=== PATIENT | male | born 1945 | race Caucasian/White ===

== ENCOUNTER 2021-02-26 16:10 | Outpatient (CLI) | payer MEDICARE, SELFPAY ==
[2021-02-26 15:07] LABS: Basophils Percent Auto 0.5 % (0.2-1.2); Eosinophils Absolute Auto 0.2 K/mm3 (0-0.3); Eosinophils Percent Auto 2.7 % (0-4.4); Hematocrit 41.8 % (42.0-52.0); Hemoglobin 14.3 g/dL (14.0-18.0); Immature Granulocyte Absolute 0.02 K/mm3 (0.00-0.031); Immature Granulocyte Percent A 0.4 % (0-0.5); Lymphocytes Absolute Auto 1.56 K/mm3 (0.9-3.2); Lymphocytes Percent Auto 27.8 % (18.3-44.2); Mean Corpuscular HGB Conc 34.2 g/dl (32-36); Mean Corpuscular Hemoglobin 33.6 pg (26-34); Mean Corpuscular Volume 98.4 fl (80-100); Mean Platelet Volume 9.5 fl (7.4-10.4); Monocytes Absolute Auto 0.7 K/mm3 (0.1-0.6); Monocytes Percent Auto 12.1 % (2.6-8.5); Neutrophils Absolute Auto 3.2 K/mm3 (1.3-6.7); Neutrophils Percent Auto 56.5 % (45.5-73.1); Platelet Count Result 156 k/mm3 (150-375); Red Blood Count 4.25 M/mm3 (4.6-6.20); Red Cell Distribution Width 13.6 % (11.5-14.5); White Blood Count 5.6 K/mm3 (4.5-10.0)
[2021-02-26 15:19] LABS: Hemoglobin A1C 5.8 % (<5.7)
[2021-02-26 15:21] LABS: Albumin Level 4.7 g/dL (3.5-5.1); Anion Gap 5 mmol/L (8-16); Blood Urea Nitrogen 29 mg/dL (9-20); Calcium 9.6 mg/dL (8.4-10.2); Carbon Dioxide 32 mmol/L (22-30); Chloride 102 mmol/L (98-107); Estimated Glomerular Filt Rate 54; Glucose 89 mg/dL (75-110); Potassium 4.5 mmol/L (3.4-5.0); Sodium 139 mmol/L (137-145)
[2021-02-26 18:00] LABS: Urine Cotinine NEGATIVE
== END 2021-02-26 16:11 | disposition home or self-care (01) ==
LOC: ANHSURGERY 04-03 16:10
PROVIDERS: PCP Internal Medicine; Visit Provider Orthopaedic Surgery
DX: Z01.818 Encounter for other preprocedural examination (principal); M17.12 Unilateral primary osteoarthritis, left knee
CPT/HCPCS: 80048; 80307; 82040; 83036; 85025; 87070; C9803; U0003; U0005

== ENCOUNTER → 2021-03-14 02:29 | Outpatient (CLI) | payer MEDICARE, SELFPAY ==
[2021-03-15 19:16] LABS: SARS-CoV-2 RNA PCR Negative
== END ==
PROVIDERS: PCP Internal Medicine; Visit Provider Orthopaedic Surgery
DX: Z01.812 Encounter for preprocedural laboratory examination (principal); Z20.822 Contact with and (suspected) exposure to COVID-19
CPT/HCPCS: C9803; U0003; U0005

== ENCOUNTER 2021-05-30 13:19 | Outpatient (CLI) | payer MEDICARE, SELFPAY ==
[2021-05-30 13:54] LABS: Basophils Percent Auto 0.5 % (0.2-1.2); Eosinophils Absolute Auto 0.1 K/mm3 (0-0.3); Hematocrit 38.2 % (42.0-52.0); Hemoglobin 12.8 g/dL (14.0-18.0); Immature Granulocyte Absolute 0.01 K/mm3 (0.00-0.031); Immature Granulocyte Percent A 0.2 % (0-0.5); Lymphocytes Percent Auto 27.5 % (18.3-44.2); Mean Corpuscular HGB Conc 33.5 g/dl (32-36); Mean Corpuscular Hemoglobin 33.3 pg (26-34); Mean Corpuscular Volume 99.5 fl (80-100); Mean Platelet Volume 9.7 fl (7.4-10.4); Monocytes Absolute Auto 0.4 K/mm3 (0.1-0.6); Monocytes Percent Auto 9.9 % (2.6-8.5); Neutrophils Absolute Auto 2.6 K/mm3 (1.3-6.7); Neutrophils Percent Auto 58.9 % (45.5-73.1); Platelet Count Result 141 k/mm3 (150-375); Red Blood Count 3.84 M/mm3 (4.6-6.20); Red Cell Distribution Width 13.6 % (11.5-14.5); White Blood Count 4.4 K/mm3 (4.5-10.0)
[2021-05-30 14:01] LABS: Albumin Level 4.5 g/dL (3.5-5.1); Anion Gap 11 mmol/L (8-16); Blood Urea Nitrogen 29 mg/dL (9-20); Calcium 9.5 mg/dL (8.4-10.2); Carbon Dioxide 26 mmol/L (22-30); Chloride 103 mmol/L (98-107); Estimated Glomerular Filt Rate 59; Glucose 122 mg/dL (75-110); Potassium 3.9 mmol/L (3.4-5.0); Sodium 140 mmol/L (137-145)
[2021-05-30 14:07] LABS: Urine Cotinine NEGATIVE
[2021-05-30 14:12] LABS: Hemoglobin A1C 5.9 % (<5.7)
== END 2021-05-30 13:20 | disposition home or self-care (01) ==
LOC: ANHSURGERY 13:22
PROVIDERS: PCP Internal Medicine; Visit Provider Orthopaedic Surgery
DX: M17.12 Unilateral primary osteoarthritis, left knee (principal); Z01.818 Encounter for other preprocedural examination
CPT/HCPCS: 80048; 80307; 82040; 83036; 85025; 86850; 86900; 86901; 87070

== ENCOUNTER 2021-06-04 02:17 | Day surgery (SDC) | payer MEDICARE, SELFPAY ==
[2021-05-29 13:56] VITALS: BMI 34.1
[2021-06-04] VITALS (15 sets, daily range): BP systolic 138–177; BP diastolic 76–102; PULSE 60–80; RESP 9–21; TEMP 36.2–37.9; O2SAT 94–100
--- NOTE | ~2021-06-04 | XR_ITS ---
EXAMINATION: XR knee LT 2V DATE: 06/04/2021 16:13 INDICATION: Postoperative evaluation following left total knee arthroplasty. TECHNIQUE: Anteroposterior and lateral views of the left knee were obtained. COMPARISON: None. FINDINGS: Left total knee arthroplasty with patellar resurfacing appears well seated and in near anatomic align ment. No fractures identified. Expected postoperative subcutaneous and intra-articular gas. IMPRESSION: 1. Left total knee arthroplasty, negative for postoperative purposes. Reviewed, dictated and finalized at location A.
--- NOTE | 2021-06-04 08:29 | PM.IMHP ---
H&P: HPI History of Present Illness Date/Time: 06/04/21 08:29 76-year-old male who presents today for a left total knee arthroplasty. Patient has severe medial compartment arthritis in the knee. He has had injections in the past. He gets little to no relief. It has been well over 4 months since his last injection. He is not take anti-inflammatories because he is on Xarelto chronically for his AFib. He has reached point where he feels he would rather proceed with total knee arthroplasty rather continue nonsurgical treatment. He was scheduled earlier this year for surgery but ended up developing an open sore on his leg that prevented surgery. This has healed well at this point he is ready to proceed. <MELO Tate - Last Filed: 06/04/21 08:36> Chief Complaint: left knee DJD <MELO Tate - Last Filed: 06/04/21 08:36> Review of Systems Review of Systems: All systems reviewed & are unremarkable except as noted in HPI and below <MELO Tate - Last Filed: 06/04/21 08:36> ON LICENSE OF [facility] Past Medical History Medical History: Medical History Atrial fibrillation BPH (benign prostatic hyperplasia) CHF (congestive heart failure) Hyperlipidemia Hypertension ICD (implantable cardioverter-defibrillator) in place EMETERIO (obstructive sleep apnea) <MELO Tate - Last Filed: 06/04/21 08:36> Social History Social History: Social History Smoking packs per day: 1 Smoking cigarettes per day: 20.0 Years smoked: 7 Smoking pack-years: 7.00 Smoking status: Former smoker Tobacco type: cigarettes Smoking end date: 05/15/75 Alcohol intake: current Drinks per week: 14 Substance use: never Living arrangements: alone Spiritual care concerns: No <MELO Tate - Last Filed: 06/04/21 08:36> Meds Home Medications and Allergies Home medications: Home Medications Medication Instructions Recorded Confirmed Type acetaminophen [Tylenol Arthritis] 1,300 mg PO TID PRN 02/26/21 06/04/21 History ascorbic acid (vitamin C) 500 mg PO DAILY 02/26/21 06/04/21 History aspirin 81 mg PO DAILY 02/26/21 06/04/21 History atorvastatin 20 mg PO QAM 02/26/21 06/04/21 History carvedilol 6.25 mg PO BID 02/26/21 06/04/21 History cholecalciferol (vitamin D3) 50 mcg PO DAILY 02/26/21 06/04/21 History furosemide 40 mg PO QAM 02/26/21 06/04/21 History omega 7-xks-rac-fish oil [Fish Oil] 1 cap PO DAILY 02/26/21 06/04/21 History rivaroxaban [Xarelto] 20 mg PO HS 02/26/21 06/04/21 History sacubitril-valsartan [Entresto] 0.5 tablet PO QAM 02/26/21 06/04/21 History sacubitril-valsartan [Entresto] 1 tablet PO HS 02/26/21 06/04/21 History tamsulosin 0.4 mg PO QPM 02/26/21 06/04/21 History vitamin E 400 unit PO DAILY 02/26/21 06/04/21 History zinc 50 mg PO DAILY 02/26/21 06/04/21 History <MELO Tate - Last Filed: 06/04/21 08:36> Allergies/Adverse reactions: Allergies Allergy/AdvReac Type Severity Reaction Status Date / Time No Known Allergies Allergy Verified 06/04/21 10:37 <MELO Tate - Last Filed: 06/04/21 08:36> Exam Narrative: Exam Narrative: 76-year-old male alert pleasant. He is 5 ft 6 197 lb. Left knee range of motion is from 10-100 degrees. He has a trace effusion. Negative Luciano's. Hip range of motion is full without discomfort. Negative Stinchfield maneuver. Normal quad strength. 2+ dorsalis pedis and posterior tibial artery pulse palpable. Normal sensation. Skin is all normal around the knee and lower leg. He has moderate medial joint line tenderness and mild to moderate pain with patellofemoral grind. <MELO Tate - Last Filed: 06/04/21 08:36> Resp: Auscultation: clear to auscultation bilaterally <MELO Tate - Last Filed: 06/04/21 08:36> Cardio: Rate: regular rate <MELO Tate - Last Filed: 06/04/21 08:36> Rhythm: abnor
[2021-06-04] MEDS: ACETAMINOPHEN 500 MG TABLET 1000 MG PO ×3 (10:48→23:52)
[2021-06-04] MEDS: LACTATED RINGERS 1,000 ML 30 ML IV CONT ×2 (11:00→16:00)
[2021-06-04] MEDS: TRANEXAMIC ACID 1,000MG/ISO100 1,000 MG/100 ML BAG 200 MG IVPB (11:05)
--- NOTE | 2021-06-04 11:28 | WPDANESEPPF ---
Anes - Initial Pre Proc Eval Procedure: Operation Date: 06/04/21 12:00 Proposed Procedures p Left Total Knee Arthroplasty - Jose Dixon MD Date/Time: 06/04/21 11:28 Surgeon: Jose Dixon MD Pre Op Diagnosis: left knee OA Patient Data Age: 76 Gender: M Height: 1.68 m Weight: 96 kg Last Vital Signs Temp 36.2 C L 06/04/21 11:14 Pulse 60 06/04/21 11:14 Resp 18 06/04/21 11:14 BP 177/88 H 06/04/21 11:14 Pulse Ox 98 06/04/21 11:14 Allergies Allergy/AdvReac Type Severity Reaction Status Date / Time No Known Allergies Allergy Verified 06/04/21 10:37 Home Medications Medication Instructions Recorded Confirmed Type acetaminophen [Tylenol Arthritis] 1,300 mg PO TID PRN 02/26/21 06/04/21 History ascorbic acid (vitamin C) 500 mg PO DAILY 02/26/21 06/04/21 History aspirin 81 mg PO DAILY 02/26/21 06/04/21 History atorvastatin 20 mg PO QAM 02/26/21 06/04/21 History carvedilol 6.25 mg PO BID 02/26/21 06/04/21 History cholecalciferol (vitamin D3) 50 mcg PO DAILY 02/26/21 06/04/21 History furosemide 40 mg PO QAM 02/26/21 06/04/21 History omega 0-iry-gvl-fish oil [Fish Oil] 1 cap PO DAILY 02/26/21 06/04/21 History rivaroxaban [Xarelto] 20 mg PO HS 02/26/21 06/04/21 History sacubitril-valsartan [Entresto] 0.5 tablet PO QAM 02/26/21 06/04/21 History sacubitril-valsartan [Entresto] 1 tablet PO HS 02/26/21 06/04/21 History tamsulosin 0.4 mg PO QPM 02/26/21 06/04/21 History vitamin E 400 unit PO DAILY 02/26/21 06/04/21 History zinc 50 mg PO DAILY 02/26/21 06/04/21 History Patient hx anesthesia problems: none Family hx anesthesia problems: none PMFSH Past Medical History Medical History Atrial fibrillation BPH (benign prostatic hyperplasia) CHF (congestive heart failure) Hyperlipidemia Hypertension ICD (implantable cardioverter-defibrillator) in place EMETERIO (obstructive sleep apnea) Social History Social History Smoking packs per day: 1 Smoking cigarettes per day: 20.0 Years smoked: 7 Smoking pack-years: 7.00 Smoking status: Former smoker Tobacco type: cigarettes Smoking end date: 05/15/75 Alcohol intake: current Drinks per week: 14 Substance use: never Living arrangements: alone Spiritual care concerns: No Anes - Eval Final PreProcedure Day of Procedure 06/04/21 11:28 Patient weight: obese Heart: regular rate and rhythm Lungs: clear to auscultation and normal air movement Airway: Mallampati scale class II Neurological: alert and oriented Last oral intake: >/= 8 hours ASA classification: III Emergent: no Anesthetic plan: proceed Anesthesia type and monitoring: general ETT and standard monitoring Informed Consent: The patient's anesthetic plan and its attendant risks and benefits were discussed with the patient/family/POA. Questions were solicited and answers provided to the satisfaction of the patient/family/POA.
--- NOTE | 2021-06-04 11:58 | WPDHPUPDATE1 ---
History and Physical Update Update Date/Time: 06/04/21 11:58 History and Physical has been reviewed, including an updated exam of the patient. There are NO changes in the patient's condition. Risks, benefits, and alternatives have been discussed and questions answered. Patient agrees to proceed with procedure.
[2021-06-04] MEDS: ceFAZolin 2 GM/D5W 50 ML 2 GM/50 ML BAG IVPB (12:14)
[2021-06-04] MEDS: GENTAMICIN BONE CEMENT REFOBACIN 1 EACH TOPICAL (13:32)
[2021-06-04] MEDS: ceFAZolin SODIUM 1 GM VIAL 3 GM IRRIGATION (14:46)
[2021-06-04] MEDS: ceFAZolin SODIUM 1 GM VIAL IV PUSH (14:47)
--- NOTE | 2021-06-04 16:00 | W.PM.PROC2 ---
Procedure Note - Detailed Date of Procedure 06/04/21 Pre-op Diagnosis left knee OA Post-op Diagnosis same Procedure Performed Left total knee arthroplasty Surgeon Jose Dixon MD Conformal Pad Former Shira Anesthesia general Indications pain and stiffness Description of Procedure patient was brought to the operating room and general anesthesia was administered. He received 2 g of Ancef weight based vancomycin and 1 g of tranexamic acid preoperatively left leg was prepped draped usual fashion. Under anesthesia he had range of motion from 8? to 120? passively. Limb was exsanguinated tourniquet elevated to 250 mmHg. He was a little bit hypertensive during the operation and because of bleeding through the tourniquet we elevated the tourniquet to 300. An 8 in longitudinal midline incision was made in the vastus medialis splitting approach utilized. Infrapatellar and suprapatellar fat pads were excised and a quadriceps synovectomy carried out. The patella measured 24.5 mm in thickness and was cut to 16.5 mm. Bone quality was excellent. A guide charbel was inserted down the femoral canal after aspiration of canal contents using the 5 degree valgus cutting bushing 9 mm of bone removed the distal femur. This removed about 9-1/2 mm laterally due to the guide sitting in a where spot lateral femoral condyle. He had complete eburnation of the medial femoral condyle. Next the tibial plateau was cut. We made a skim cut off the low point of medial tibial plateau perpendicular to the axis of the tibia and this removed about 7 mm laterally. Meniscal remnants were excised the PCL recessed. In flexion the knee was far too tight to accept an 8 mm spacer block medially. The lateral gap was about 9 mm. Therefore an additional 3 mm of bone removed from the tibial plateau. We did not perform any medial capsule release other than the anteromedial metaphyseal exposure. He had only a very mild varus deformity preoperatively. The flexion gap at this time measured 8 mm medially and 11 mm laterally. The femoral sizing guide was applied to the distal femur and set at 4? of external rotation which matched Whitesides line well. Posterior referencing pin holes were placed. We 1st applied the size 67.5 cutting block and we noted this was going to result in a cut that would be well above the anterior cortex. We applied the 65 cutting block AP and chamfer cuts were made. Bone quality again excellent. The 65 trial fit line to line medial to lateral and rested on cut surface of anterior cortex so it had a very nice fit. The 10 mm trial CR insert fit well in extension and in flexion with fairly symmetrical play. Alignment of the tibial cut was confirmed to be accurate. The tibia was sized to a size 71 vanguard and this was set at proper rotation and fit line to line anteromedial to posterolateral. This was punched and we trialed. The 10 was a little loose in both flexion and extension. The 11 had an appropriate feel opening up 1-2 medially and laterally in extension and appropriate stability at 90? with 1 mm medial and lateral opening and a few mm of anterior drawer Both medially and laterally. Clinton flexion was to 1 35. We did release sub muscularly adhesions during the exposure to allow full excursion of the quadriceps. There was a fairly positive bounce. At this time removed the trial components replaced the femoral component removed posterior femoral osteophyte and perform central capsule release as he did have a flexion contracture and on read trialing the knee came out to full extension with 11 insert with a negative bounce. The bony surfaces were prepared with a step drill and the tibial plateau and distal femur and thoroughly irrigated and dried. Two batches of methylmethacrylate 1 with gentamicin powder mixed medially applied the 71 tibial component then the 65 left femoral component cement applied to tibia pressurized tibial bone fully seated cement applied the femur and
--- NOTE | 2021-06-04 16:21 | SUR.PHASEI ---
PORTABLE 2V XRAY OF LEFT HIP DONE.
[2021-06-04] MEDS: fentaNYL CITRATE INJ (*CRX) 100 MCG/2 ML VIAL 25 MCG IV PUSH ×2 (16:43→17:05)
--- NOTE | 2021-06-04 17:27 | SUR.PHASEI ---
DISREGARD CHARTING OF PAIN TO LEFT HIP; ALL CHARTING TO PAIN IS OF LEFT KNEE.
--- NOTE | 2021-06-04 18:50 | ADMGEN ---
This patient, Naun Bynum, was admitted to 2 Medical Room 250-01. Patient/family oriented to hospital policies and general routines including ID bracelet, bed and alarms, visiting hours, pain management, procedures, bathroom and other care routines, personal items, smoking policy, room service/diet, and visiting hours. Information on how to activate the Rapid Response Team has been discussed. Patient/Family are encouraged to report perceived risks to care and to ask questions if they do not understand what they are told or what they should do. Report received from Wilda
--- NOTE | 2021-06-04 19:05 | SUR.PHASEI ---
DR. PEARCE CALLED RE: LEIVA CATHETER; INSTRUCTED TO ORDER TO DISCONTINUE LEIVA CATHETER.
--- NOTE | 2021-06-04 20:00 | PM.IMCN ---
Assessment and Plan Assessment and plan (1) Status post total knee replacement, left: Code(s): Z96.652 - Presence of left artificial knee joint Status: Acute Assessment and Plan: postop management per primary service. (2) CHF (congestive heart failure): Qualifiers: Heart failure chronicity: chronic Heart failure type: unspecified Qualified Code(s): I50.9 - Heart failure, unspecified Code(s): I50.9 - Heart failure, unspecified Status: Acute Assessment and Plan: patient appears euvolemic. Will continue patient's home Coreg, atorvastatin, Lasix and Entresto. resume home Xarelto and aspirin when okay with primary service. (3) EMETERIO (obstructive sleep apnea): Code(s): G47.33 - Obstructive sleep apnea (adult) (pediatric) Status: Acute Assessment and Plan: Auto titrating CPAP/BiPAP ordered HPI Data of Consult Consult date: 06/04/21 Requesting Physician: Jose Dixon MD Primary Care Provider: Rafael Paul, Consult Narrative Narrative: Naun Bynum is a 76 year old male With a past medical history of paroxysmal atrial fibrillation, pacemaker, and systolic CHF who presented to the hospital for elective left total knee arthroplasty. the patient has severe medial compartmental osteoarthritis of the knee. He has been struggling with knee pain for several years and has tried injections in the past. He subsequently underwent left total knee arthroplasty today. Postoperatively he has been doing well and has no complaints. He reports that his pain is 4-5/10 in intensity. He denies having any shortness of breath, orthopnea or paroxysmal nocturnal dyspnea. He does uses CPAP at home and had brought his home CPAP in but was told to take at home. Subsequently, auto titrating unit has been ordered well is hospitalized but we are running low on CPAP equipment. He reports that he occasionally does have some ankle swelling if he eats salty food but denies any recent leg swelling. He denies any chest pain or shortness of breath. He is been back to the room about 4 hours and has not yet voided. He does have a history of BPH and does have incidences of urinary retention. he denies any constipation. Review of Systems Review of Systems: Narrative: 12 systems were reviewed with pertinent positives and negatives per HPI. Except as documented in the HPI, all other systems were reviewed and are negative. PMFSH Past Medical History Medical History (Updated 06/04/21 @ 22:11 by Chelsea Diane DO) Ascending aortic aneurysm Atrial fibrillation BPH (benign prostatic hyperplasia) Hyperlipidemia Hypertension EMETERIO (obstructive sleep apnea) Systolic CHF Surgical History Surgical History (Updated 06/04/21 @ 22:11 by Chelsea Diane DO) Artificial cardiac pacemaker (~2018) History of appendectomy History of cardiac radiofrequency ablation (~2018) History of tonsillectomy and adenoidectomy ICD (implantable cardioverter-defibrillator) in place (~2018) Status post total knee replacement, left Family History Family History Daughter Psoriatic arthritis Father , at age 89 Coronary artery disease Mother , at age 88 Abdominal mass Social History Social History (Updated 06/04/21 @ 22:09 by Chelsea Diane DO) Social History: He has been in a long-term relationship with his girlfriend of 7 years. His girlfriend lives nearby. He has a distant history of tobacco use. He smoked between 1-3 packs of cigarettes per day for 9 years. He drinks between 2-3 alcoholic beverages every other day. 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 He has 3 children. Primary care physician: Dr. Rafael Paul code status: Full code Surrogate decision maker: His oldest daughter and his son. Smoking packs per day: 1 Smoking cigarettes per day: 20.0 Years smoked: 9
[2021-06-04] MEDS: DEXTROSE 5%/0.45% SOD CHL 1,000 ML 100 ML IV CONT (21:23)
[2021-06-04] MEDS: oxyCODONE HCL (*CRX) 5 MG TAB IR PO ×2 (21:24→23:51)
[2021-06-04] MEDS: carvediloL 6.25 MG TABLET PO (21:24)
[2021-06-04] MEDS: SENNA/DOCUSATE SODIUM TABLET 2 TAB PO (21:24)
[2021-06-04] MEDS: TAMSULOSIN HCL 0.4 MG CAPSULE PO (21:24)
[2021-06-04] MEDS: SACUBITRIL/VALSARTAN 24-26 MG TABLET 1 TAB PO (21:24)
[2021-06-05] VITALS: PULSE 66
[2021-06-05 00:12] VITALS: BP 129/73; PULSE 59; RESP 20; TEMP 36.4; O2SAT 99
[2021-06-05 04:00] VITALS: PULSE 66
[2021-06-05 04:12] VITALS: BP 118/59; PULSE 59; RESP 20; TEMP 36.7; O2SAT 98
[2021-06-05] MEDS: oxyCODONE HCL (*CRX) 5 MG TAB IR PO ×3 (04:23→12:44)
[2021-06-05 05:31] LABS: Basophils Percent Auto 0.1 % (0.2-1.2); Hematocrit 35.6 % (42.0-52.0); Hemoglobin 12.2 g/dL (14.0-18.0); Immature Granulocyte Percent A 0.8 % (0-0.5); Lymphocytes Absolute Auto 0.56 K/mm3 (0.9-3.2); Lymphocytes Percent Auto 4.5 % (18.3-44.2); Mean Corpuscular HGB Conc 34.3 g/dl (32-36); Mean Corpuscular Hemoglobin 33.5 pg (26-34); Mean Corpuscular Volume 97.8 fl (80-100); Monocytes Absolute Auto 0.8 K/mm3 (0.1-0.6); Monocytes Percent Auto 6.5 % (2.6-8.5); Neutrophils Absolute Auto 10.9 K/mm3 (1.3-6.7); Neutrophils Percent Auto 88.1 % (45.5-73.1); Platelet Count Result 131 k/mm3 (150-375); Red Blood Count 3.64 M/mm3 (4.6-6.20); Red Cell Distribution Width 13.5 % (11.5-14.5); White Blood Count 12.3 K/mm3 (4.5-10.0)
[2021-06-05 05:54] LABS: Anion Gap 12 mmol/L (8-16); Blood Urea Nitrogen 21 mg/dL (9-20); Calcium 8.7 mg/dL (8.4-10.2); Carbon Dioxide 21 mmol/L (22-30); Chloride 102 mmol/L (98-107); Estimated CRCL calculation 53 ml/min; Estimated Glomerular Filt Rate > 60; Glucose 206 mg/dL (65-110); Potassium 4.4 mmol/L (3.4-5.0); Sodium 135 mmol/L (137-145)
--- NOTE | 2021-06-05 07:13 | PM.PNORT ---
Progress Note: A&P Additional Plan POD 1 avss alert pain is well controlled, dressing is dry, pt has been up to restroom several times overnight and in chair-tolerating well, labs-notedoverall pt is doing very well plan to have him work with PT today then home this afternoon Subjective Subjective Date/Time Seen: 06/05/21 07:13 Objective Data Vital Signs Vital Signs: Vital Signs - 24 hr 06/04/21 11:14 06/04/21 16:00 06/04/21 16:15 Temperature 36.2 C L 37.9 C H Pulse Rate 60 60 60 Respiratory Rate 18 14 14 Blood Pressure 177/88 H 138/83 148/87 H Pulse Oximetry 98 99 100 06/04/21 16:30 06/04/21 17:00 06/04/21 17:15 Temperature 36.5 C Pulse Rate 60 60 66 Respiratory Rate 10 L 9 L 18 Blood Pressure 147/91 H 162/95 H 166/98 H Pulse Oximetry 100 100 96 06/04/21 17:30 06/04/21 17:45 06/04/21 18:00 Temperature Pulse Rate 70 66 60 Respiratory Rate 18 11 L 13 Blood Pressure 166/98 H 164/102 H 162/91 H Pulse Oximetry 94 100 100 06/04/21 18:15 06/04/21 19:12 06/04/21 19:59 Temperature 36.4 C L Pulse Rate 60 60 Respiratory Rate 21 H 18 Blood Pressure 166/93 H 152/99 H Pulse Oximetry 96 94 97 06/04/21 20:00 06/04/21 20:12 06/04/21 21:24 Temperature 36.6 C Pulse Rate 80 60 80 Respiratory Rate 21 H 16 Blood Pressure 148/76 H Pulse Oximetry 97 94 06/05/21 00:00 06/05/21 00:12 06/05/21 04:00 Temperature 36.4 C Pulse Rate 66 59 L 66 Respiratory Rate 20 Blood Pressure 129/73 Pulse Oximetry 99 Intake/Output Intake/Output: Intake & Output 06/02/21 06/03/21 06/04/21 06/05/21 23:59 23:59 23:59 23:59 Intake Total 2450 300 Balance 2450 300 Meds/Results Medications: Active Medications Generic Name Dose Route Start Last Admin Trade Name Freq PRN Reason Stop Dose Admin Acetaminophen 1,000 mg 06/04/21 19:30 06/04/21 23:52 Acetaminophen 500 Mg Tablet PO 1,000 mg Q6H STEPHANIE Administration Atorvastatin Calcium 20 mg 06/05/21 09:00 Atorvastatin 20 Mg Tablet PO QAM STEPHANIE Carvedilol 6.25 mg 06/04/21 21:00 06/04/21 21:24 Carvedilol 6.25 Mg Tablet PO 6.25 mg Q12HR STEPHANIE Administration Furosemide 40 mg 06/05/21 09:00 Furosemide 40 Mg Tablet PO QAM STEPHANIE Vancomycin HCl 1,000 mg in 250 mls @ 250 mls/hr 06/04/21 23:00 06/05/21 00:50 Vancomycin 1,000 Mg/D5w 250 Ml IVPB 06/05/21 11:59 Infused Q12H STEPHANIE Infusion Dextrose/Sodium Chloride 1,000 mls @ 100 mls/hr 06/04/21 18:27 06/04/21 21:23 Dextrose 5% Sodium Chloride 0.45% IV CONT 100 mls/hr .Q10H STEPHANIE Administration Cefazolin Sodium 1 gm in 50 mls @ 100 mls/hr 06/05/21 06:00 06/05/21 05:55 Ancef 1 Gm/D5w 50 Ml Pm IVPB 06/05/21 12:29 100 mls/hr Q6H STEPHANIE Administration Morphine Sulfate 2 mg 06/04/21 18:27 Morphine Sulfate (*Crx) 2 Mg/Ml Inj IV PUSH Q1H PRN Pain Rated 7-10 Naloxone HCl 0.1 mg 06/04/21 18:27 Naloxone Hcl 0.4 Mg/Ml Vial IV PUSH Q2M PRN Opiate Reversal Ondansetron HCl 4 mg 06/04/21 18:27 Ondansetron Inj 4 Mg/2 Ml Vial IV PUSH Q4H PRN Nausea And Vomiting Oxycodone HCl 5 mg 06/04/21 19:30 06/05/21 04:23 Oxycodone Hcl (*Crx) 5 Mg Tab Ir PO 5 mg Q4H STEPHANIE Administration Oxycodone HCl 2.5 mg 06/04/21 18:27 Oxycodone Hcl (*Crx) 2.5 Mg Tab Ir PO Q4H PRN Pain Rated 7-10 Polyethylene Glycol 17 gm 06/05/21 09:00 Polyethylene Glycol 3350 17 Gm Powd.Pack PO QAM STEPHANIE Rivaroxaban 10 mg 06/05/21 15:00 Rivaroxaban 10 Mg Tablet PO 06/11/21 17:01 DAILY@17 [facility] Sacubitril/Valsartan 1 tab 06/05/21 09:00 Sacubitril/Valsartan 12-13 Mg Tablet PO QAM [facility] Sacubitril/Valsartan 1 tab 06/04/21 21:00 06/04/21 21:24 Sacubitril/Valsartan 24-26 Mg Tablet PO 1 tab HS STEPHANIE Administration Senna/Docusate Sodium 2 tab 06/04/21 18:27 06/04/21 21:24 Senna/Docusate Sodium Tablet PO 2 tab BID STEPHANIE Administration Tamsulosin HCl 0.4 mg 06/04/21 18:27 07
--- NOTE | 2021-06-05 07:20 | PM.DS ---
DS: Admitting Diagnosis Admitting Diagnosis Admitting Diagnosis: left knee DJD DS: Summary Hospital Course Hospital Course: stable Time Spent with Patient Time attestation: Total time spent providing and/or coordinating discharge services:76-year-old male who underwent left total knee arthroplasty on 06/04. On with procedure without any complications postoperatively he has been afebrile vital Signs was stable. Neurovascularly he is intact. He has a Mepilex dressing over his knee and it is dry. He is weight-bearing as tolerated. He is on Xarelto 10 mg daily for 2 weeks and then he will resume his normal dosing 20 mg daily of Xarelto for his chronic AFib. The pain is well controlled with scheduled Tylenol as well as oxycodone 5 mg. He was up to the rest room multiple times a day of surgery and tolerated this well. Patient will work with Physical therapy on postop day 1. He continues to well The plan will be discharged home on 06/05. he will home on a regular diet. Patient was advised to keep the leg elevated at home prevent swelling but his exercises on a regular basis. His outpatient therapy starting next week. The patient was advised any questions or concerns once he goes home he should call the office otherwise will plan on seeing him at his appointed date. DS: Data Data Completed and Pending Labs on day of discharge: Labs from last 24 hours 06/05/21 06/05/21 05:21 05:21 WBC 12.3 H RBC 3.64 L Hgb 12.2 L Hct 35.6 L MCV 97.8 MCH 33.5 MCHC 34.3 RDW 13.5 Plt Count 131 L MPV 10.0 Immature Gran % (Auto) 0.8 H Neut % (Auto) 88.1 H Lymph % (Auto) 4.5 L [place] % (Auto) 6.5 Eos % (Auto) 0.0 Baso % (Auto) 0.1 L Lymph # (Auto) 0.56 L [place] # (Auto) 0.8 H Eos # (Auto) 0.0 Baso # (Auto) 0.0 Abs Immat Gran (auto) 0.10 H Absolute Neuts (auto) 10.9 H Absolute Nucleated RBC 0.0 Nucleated RBC % 0.0 Sodium 135 L Potassium 4.4 Chloride 102 Carbon Dioxide 21 L Anion Gap 12 BUN 21 H Creatinine 1.10 Estim Creat Clear Calc 53 Estimated GFR > 60 Glucose 206 H Calcium 8.7 Discharge Plan Discharge Patient Disposition: Home, Self-Care Discharge Instructions: JOSE DIXON M.D [facility], [place] [address] [place] [address] POST-OPERATIVE DISCHARGE INSTRUCTIONS TOTAL KNEE ARTHROPLASTY 1. When resting, lie on back with leg elevated above hear to minimize swelling. Significant swelling could indicate a blood clot and if this occurs call the office (or go to the ER) to have a venous ultrasound. 2. Do exercise 5 times a day. 3. Do not sit with leg down except for meals. 4. Wound Care: Nursing will give additional dressings at discharge. Patient to change dressing at home 1 week from surgery, then maintain until seen in office. 5. May shower with dressing in place. 6. Follow weight bearing status instructions. 7. LImit sitting in chair to 30 min at a time 4 times a day Patient Instructions: Rivaroxaban (By mouth), Heart Failure (ED) Follow-up/Referrals: Jose Dixon MD [Physician] - Keep Reg. Scheduled Appt. Discharge Medications: New acetaminophen 500 mg Tablet 1,000 mg PO Q6H Qty: 90 RF: 0 sennosides-docusate sodium [Senokot-S] 8.6-50 mg Tablet 2 tab-cap PO BID Qty: 60 RF: 0 polyethylene glycol 3350 [Miralax] 17 gram Powder In Packet 17 g PO QAM Qty: 30 RF: 0 oxycodone 5 mg Tablet 5 mg PO Q4H Qty: 40 RF: 0 Xarelto 10 mg Tablet 10 mg PO DAILY@17 Qty: 14 RF: 0 Continued furosemide 40 mg tablet 40 mg PO QAM RF: 0 carvedilol 6.25 mg tablet 6.25 mg PO BID RF: 0 atorvastatin 20 mg tablet 20 mg PO QAM RF: 0 aspirin 81 mg Tablet,Delayed Release (Dr/Ec) 81 mg PO DAILY RF: 0 tamsulosin 0.4 mg capsule 0.4 mg PO QPM RF: 0 vitamin E 400 unit Capsule 400 unit PO DAILY RF: 0 zinc 50 mg Capsule 50 mg PO D
[2021-06-05] MEDS: ACETAMINOPHEN 500 MG TABLET 1000 MG PO ×2 (10:03→15:47)
[2021-06-05] MEDS: polyethylene glycoL 3350 17 GM POWD.PACK PO (10:03)
[2021-06-05] MEDS: FUROSEMIDE 40 MG TABLET PO (10:04)
[2021-06-05] MEDS: ATORVASTATIN 20 MG TABLET PO (10:04)
[2021-06-05] MEDS: SACUBITRIL/VALSARTAN 12-13 MG TABLET 1 TAB PO (10:04)
[2021-06-05] MEDS: carvediloL 6.25 MG TABLET PO (10:04)
[2021-06-05] MEDS: SENNA/DOCUSATE SODIUM TABLET 2 TAB PO (10:04)
[2021-06-05] MEDS: CHOLECALCIFEROL 1,000 UNITS TABLET 2000 UNITS PO (10:04)
[2021-06-05 10:30] VITALS: BP 118/58; PULSE 60; RESP 18; TEMP 36.6; O2SAT 96
--- NOTE | 2021-06-05 11:17 | PM.IMPN ---
Progress Note: A&P Assessment and Plan (1) Status post total knee replacement, left: Code(s): Z96.652 - Presence of left artificial knee joint Status: Acute Assessment and Plan: Recovering well from the surgery. Walking to the BR with minimal assistance. Pain well controlled. Contnue PT/OT. (2) CHF (congestive heart failure): Qualifiers: Heart failure chronicity: chronic Heart failure type: unspecified Qualified Code(s): I50.9 - Heart failure, unspecified Code(s): I50.9 - Heart failure, unspecified Status: Acute Assessment and Plan: patient has hx of CHF. He appears euvolemic. Continue patient's home Coreg, atorvastatin, Lasix and Entresto. Xarelto resumed. Resume home aspirin when okay with primary service. (3) EMETERIO (obstructive sleep apnea): Code(s): G47.33 - Obstructive sleep apnea (adult) (pediatric) Status: Acute Assessment and Plan: Unable to get a NIV overnight. He is compliant with NIV at home. Continue auto titrating CPAP/BiPAP if he stays the night (4) Atrial fibrillation: Code(s): I48.91 - Unspecified atrial fibrillation Status: Acute Assessment and Plan: Appears to be maintaining NSR. Did have brief run of NSVT. Has ICD in place. Will check Mag level. (5) Hyperglycemia: Code(s): R73.9 - Hyperglycemia, unspecified Status: Acute Assessment and Plan: Glucose 206 this morning felt related to being on Dextrose in his fluids. A1c earlier this month was 5.9 so doubt DM. Stop IV fluids especially given his hx of CHF. Subjective Date/time seen: 06/05/21 11:17 Interval history: 76yo male with CHF, pAFib and dysrhythmias with ICD in situ here for elective Left TKA. Patient did well with therapy according to the therapist. No problems overnight. He was unable to wear his CPAP last night. No chest pain or shortness of breath. No polyuria or polydipsia. No flatus or bowel movements. Exam Narrative: Exam Narrative: AF 98.0 118/58 60 18 96% ra Gen - NARD sitting up in bed Chest - CTA bilaterally, nml RR CV - RRR S1/S2; Tele showing no significnat at the time of my visit this moring but called by RN who stated patietn had a 5 beat run NSVT Abd - soft, NT/ND, +BS Ext - min edema around the left knee. Left knee dressing clean/dry/intake Neuro - nonfocal Psych - normal mood and affect Objective Data Vital Signs Vital Signs: Vital Signs - 24 hr 06/04/21 16:00 06/04/21 16:15 06/04/21 16:30 Temperature 100.3 F H Pulse Rate 60 60 60 Respiratory Rate 14 14 10 L Blood Pressure 138/83 148/87 H 147/91 H Pulse Oximetry 99 100 100 06/04/21 17:00 06/04/21 17:15 06/04/21 17:30 Temperature 97.7 F Pulse Rate 60 66 70 Respiratory Rate 9 L 18 18 Blood Pressure 162/95 H 166/98 H 166/98 H Pulse Oximetry 100 96 94 06/04/21 17:45 06/04/21 18:00 06/04/21 18:15 Temperature Pulse Rate 66 60 60 Respiratory Rate 11 L 13 21 H Blood Pressure 164/102 H 162/91 H 166/93 H Pulse Oximetry 100 100 96 06/04/21 19:12 06/04/21 19:59 06/04/21 20:00 Temperature 97.5 F L Pulse Rate 60 80 Respiratory Rate 18 21 H Blood Pressure 152/99 H Pulse Oximetry 94 97 97 06/04/21 20:12 06/04/21 21:24 06/05/21 00:00 Temperature 97.8 F Pulse Rate 60 80 66 Respiratory Rate 16 Blood Pressure 148/76 H Pulse Oximetry 94 06/05/21 00:12 06/05/21 04:00 06/05/21 04:12 Temperature 97.6 F 98.1 F Pulse Rate 59 L 66 59 L Respiratory Rate 20 20 Blood Pressure 129/73 118/59 L Pulse Oximetry 99 98 06/05/21 10:30 Temperature 98 F Pulse Rate 60 Respiratory Rate 18 Blood Pressure 118/58 L Pulse Oximetry 96 Intake/Output Intake/Output: Intake & Output 06/02/21 06/03/21 06/04/21 06/05/21 23:59 23:59 23:59 23:59 Intake Total 2450 2740 Output Total 1600 Balance 2450 1140 Meds/Results Medications: Active Medications Generic Name Dose Route Start
[2021-06-05 12:42] LABS: Magnesium 1.9 mg/dL (1.6-2.3)
[2021-06-05] MEDS: RIVAROXABAN 10 MG TABLET PO (15:47)
== END 2021-06-05 16:15 | disposition home or self-care (01) ==
LOC: ANHSURGERY 14:01 → ANH2MED 18:55
PROVIDERS: Internal Medicine; PCP Internal Medicine; Visit Provider Orthopaedic Surgery
PROC: (CPT 27447; principal; 2021-06-04 12:00)
DX: M17.12 Unilateral primary osteoarthritis, left knee (principal); I48.91 Unspecified atrial fibrillation; I11.0 Hypertensive heart disease with heart failure; I50.9 Heart failure, unspecified; N40.0 Benign prostatic hyperplasia without lower urinary tract symptoms; E78.5 Hyperlipidemia, unspecified; G47.33 Obstructive sleep apnea (adult) (pediatric); Z95.810 Presence of automatic (implantable) cardiac defibrillator; Z79.01 Long term (current) use of anticoagulants; Z79.82 Long term (current) use of aspirin; Z87.891 Personal history of nicotine dependence; E66.9 Obesity, unspecified; Z68.34 Body mass index [BMI] 34.0-34.9, adult
CPT/HCPCS: 27447; 36415; 73560; 80048; 80307; 82040; 83036; 83735; 85025; 86850; 86900; 86901; 87070; 97110; 97116; 97161; 97165; A9270; C1713; C1776; J0131; J0171; J0330; J0690; J1100; J1170; J2270; J2405; J2704; J2710; J2795; J3010; J3370; J7030; J7120

== ENCOUNTER 2021-11-11 11:50 | Outpatient (CLI) | payer MEDICARE, SELFPAY ==
[2021-11-11 13:22] LABS: Basophils Percent Auto 0.4 % (0.2-1.2); Eosinophils Absolute Auto 0.1 K/mm3 (0-0.3); Eosinophils Percent Auto 2.5 % (0-4.4); Hematocrit 39.8 % (42.0-52.0); Hemoglobin 13.3 g/dL (14.0-18.0); Immature Granulocyte Absolute 0.01 K/mm3 (0.00-0.031); Immature Granulocyte Percent A 0.2 % (0-0.5); Lymphocytes Absolute Auto 1.42 K/mm3 (0.9-3.2); Lymphocytes Percent Auto 25.3 % (18.3-44.2); Mean Corpuscular HGB Conc 33.4 g/dl (32-36); Mean Corpuscular Hemoglobin 33.8 pg (26-34); Monocytes Absolute Auto 0.6 K/mm3 (0.1-0.6); Monocytes Percent Auto 10.9 % (2.6-8.5); Neutrophils Absolute Auto 3.4 K/mm3 (1.3-6.7); Neutrophils Percent Auto 60.7 % (45.5-73.1); Platelet Count Result 152 k/mm3 (150-375); Red Blood Count 3.94 M/mm3 (4.6-6.20); Red Cell Distribution Width 14.1 % (11.5-14.5); White Blood Count 5.6 K/mm3 (4.5-10.0)
[2021-11-11 13:30] LABS: Urine Cotinine NEGATIVE
[2021-11-11 13:35] LABS: Albumin Level 4.7 g/dL (3.5-5.1); Anion Gap 7 mmol/L (8-16); Blood Urea Nitrogen 34 mg/dL (9-20); Calcium 9.2 mg/dL (8.4-10.2); Carbon Dioxide 23 mmol/L (22-30); Chloride 105 mmol/L (98-107); Estimated Glomerular Filt Rate 59; Glucose 95 mg/dL (65-110); Potassium 4.1 mmol/L (3.4-5.0); Sodium 135 mmol/L (137-145)
[2021-11-11 13:37] LABS: Hemoglobin A1C 5.9 % (<5.7)
== END 2021-11-11 11:51 | disposition home or self-care (01) ==
LOC: ANHSURGERY 11:53
PROVIDERS: PCP Internal Medicine; Visit Provider Orthopaedic Surgery
DX: M17.11 Unilateral primary osteoarthritis, right knee (principal); Z01.818 Encounter for other preprocedural examination
CPT/HCPCS: 80048; 80307; 82040; 83036; 85025; 86850; 86900; 86901; 87070; J1100; J2370; J2405; J2704

== ENCOUNTER 2021-11-17 00:57 | Day surgery (SDC) | payer MEDICARE, SELFPAY ==
--- NOTE | 2021-11-11 11:41 | PC.NURSE ---
Report to the Outpatient Waiting Room, entrance under the green pavilion located off [facility], at time _0600_ on date _11/17/21_. OR Time: _0730 AM_. - You and your visitor will be asked a series of questions to screen for COVID 19 for your protection. - A mask is required within the hospital. - AT THIS TIIME NO visitors is allowed at this time. Patient visitors will be guided where to wait when not with patient. Preoperative COVID Testing Requirements: No COVID Test needed if: (proof is required; if not received patient will have Rapid Test prior to entry) - Patient has received COVID Vaccine at least 14 days prior to procedure date or - Patient has positive COVID test result within last 90 days of surgery date. COVID Test needed if above criteria is not met If not COVID vaccinated a COVID test must be conducted within 72 hours of surgery and patient is asked to isolate self from time of testing until procedure. You will go to the [facility] for your COVID testing. The [facility] is located at the corner of [address] [facility]. You will only be called if COVID results are positive and your surgeon may reschedule your elective surgery date. Patients may have clear liquids (water, carbonated beverages, clear teas, apple juice) until 3 hours prior to surgery with a maximum of 20 ounces. (0430 AM) - No food from midnight until time of surgery - Infants may have breast milk until 4 hours before surgery, infant formula 6 hours prior to surgery. - Children will be allowed to drink immediately following surgery. If applicable, please bring a bottle or sippy cup to assist with drinking. Juice, water, soda, and popsicles are readily available. For infants on formula, please bring formula the day of surgery. Pacifiers are allowed. Take the following medications with a SIP of water the morning of surgery: _CARVEDILOL, & TYLENOL IF NEEDED __ Medication to stop: PER DR. PEARCE - ASPIRIN 7 DAYS PRIOR TO SURGERY - LAST DOSE 11/09/21 XARELTO 3 DAYS PRIOR TO SURGERY - LAST DOSE 11/13/21 PER ANESTHESIA - ALL VITAMINS AND SUPPLEMENTS - 3 DAYS PRIOR TO SURGERY - LAST DOSE 11/13/21 Please no make-up, nail lao, hairspray, perfume, deodorant, or body powder the day of surgery. No jewelry (including any body piercings) or valuables the day of surgery, leave them at home. Please take a shower or bath the night before, or the morning of, surgery with an antibacterial soap. Wear comfortable, loose fitting clothing. Children are encouraged to wear pajamas. - Jewelry must be removed prior to entering the operating room. Rings and piercings that are not removed may be cut off. - The hospital will not accept responsibility for valuables. - Please leave all valuables, including medications, at home the day of surgery. If you are going home after surgery, a licensed utility worker driver must drive you home. - NO public transportation without another adult. - We recommend that an adult stay with you for 24 hours following discharge. - We also recommend that you do not drive, make important decision, drink alcoholic beverages, or take any drugs that were not prescribed by your health care provider for at least 24 hours after your discharge time. For Pediatric surgeries, we recommend two adults accompany the child home (only one inside the building at this time). Follow any additional instructions given to you from your surgeon. Telephone instructions given to ___PT and asked if any additional questions and then verbalized understanding. Patient advised to call surgeon office or pre surgery nurse liaison [phone] if any additional questions.
[2021-11-11 12:16] VITALS: BP 114/66; PULSE 60; RESP 20; TEMP 36.6; O2SAT 97; BMI 34.2
--- NOTE | 2021-11-16 19:12 | PM.IMHP ---
H&P: HPI History of Present Illness Date/Time: 11/16/21 19:12 Chief Complaint: painful osteoarthritis right knee. Patient presents right total knee arthroplasty [facility] Past Medical History Medical History (Updated 06/05/21 @ 11:59 by Prem Crabtree MD) Ascending aortic aneurysm Atrial fibrillation BPH (benign prostatic hyperplasia) Hyperlipidemia Hypertension EMETERIO (obstructive sleep apnea) Systolic CHF Surgical History Surgical History (Updated 06/04/21 @ 22:11 by Chelsea Diane DO) Artificial cardiac pacemaker (~2018) History of appendectomy History of cardiac radiofrequency ablation (~2018) History of tonsillectomy and adenoidectomy ICD (implantable cardioverter-defibrillator) in place (~2018) Status post total knee replacement, left Family History Family History Daughter Psoriatic arthritis Father , at age 89 Coronary artery disease Mother , at age 88 Abdominal mass Social History Social History (Updated 06/04/21 @ 22:09 by Chelsea Diane DO) Social History: He has been in a long-term relationship with his girlfriend of 7 years. His girlfriend lives nearby. He has a distant history of tobacco use. He smoked between 1-3 packs of cigarettes per day for 9 years. He drinks between 2-3 alcoholic beverages every other day. 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 He has 3 children. Primary care physician: Dr. Rafael Paul code status: Full code Surrogate decision maker: His oldest daughter and his son. Smoking packs per day: 1 Smoking cigarettes per day: 20.0 Years smoked: 7 Smoking pack-years: 7.00 Smoking status: Former smoker Tobacco type: cigarettes Second hand tobacco smoke exposure: No Smoking end date: 05/15/70 Additional smoking assessment comments: STATES QUITTING 1976 - DENIES ALL FORMS OF TOBACCO USE Alcohol intake: current Drinks per week: 14 Substance use: never Substance use type: does not use Spiritual care concerns: No Meds Home Medications and Allergies Home Medications Medication Instructions Recorded Confirmed Type Entresto 0.5 tablet PO QAM 02/26/21 11/11/21 History Entresto 1 tablet PO HS 02/26/21 11/11/21 History ascorbic acid (vitamin C) 500 mg PO DAILY 02/26/21 11/11/21 History aspirin 81 mg PO DAILY 02/26/21 11/11/21 History atorvastatin 20 mg PO QAM 02/26/21 11/11/21 History carvedilol 6.25 mg PO BID 02/26/21 11/11/21 History cholecalciferol (vitamin D3) 50 mcg PO DAILY 02/26/21 11/11/21 History furosemide 40 mg PO QAM 02/26/21 11/11/21 History omega 8-cbr-vkx-fish oil [Fish Oil] 1 cap PO DAILY 02/26/21 11/11/21 History tamsulosin 0.4 mg PO QPM 02/26/21 11/11/21 History vitamin E 400 unit PO DAILY 02/26/21 11/11/21 History zinc 50 mg PO DAILY 02/26/21 11/11/21 History acetaminophen 1,000 mg PO Q6H #90 tablet 06/05/21 11/11/21 Rx rivaroxaban [Xarelto] 10 mg PO DAILY@17 #14 tablet 06/05/21 11/11/21 Rx Allergies Allergy/AdvReac Type Severity Reaction Status Date / Time No Known Allergies Allergy Verified 11/11/21 12:02 Exam Narrative: On examination this gentleman is a pleasant gentleman in no acute distress. He is alert and oriented. His blood pressure heart rate heart and lung auscultation will be documented on day of admission. Right knee range of motion is 3-130 degrees. Mild effusion. Normal AP and mediolateral stability. Full range of motion right hip without discomfort negative Stinchfield maneuver. Five of 5 quadriceps strength. Absent dorsalis pedis but 2+ posterior tibial artery pulse is palpable. Trace pretibial edema bilaterally no pedal edema bilaterally skin looked normal in for the knee. Has some scarring over the pretibial area of the distal lower leg but no erythema. He has moderately severe pain with patellofemoral grind medial tenderness. He Walks with a mild limp. H&P: Results Labs Labs: Lab
[2021-11-17] VITALS (25 sets, daily range): BP systolic 122–184; BP diastolic 70–106; PULSE 59–102; RESP 12–24; TEMP 36.3–36.9; O2SAT 86–100
--- NOTE | ~2021-11-17 | XR_ITS ---
EXAMINATION: XR knee RT 2V DATE: 11/17/2021 10:34 INDICATION: Postoperative evaluation following right total knee arthroplasty. TECHNIQUE: Anteroposterior and lateral views of the right knee were obtained. COMPARISON: 02/27/2019 FINDINGS: Right total knee arthroplasty without patellar resurfacing appears well seated and in near anatomic a lignment. No fractures identified. Expected postoperative subcutaneous and intra-articular gas. IMPRESSION: 1. Right total knee arthroplasty, negative for postoperative purposes. Reviewed, dictated and finalized at location [facility]. [facility]
[2021-11-17] MEDS: ACETAMINOPHEN 500 MG TABLET 1000 MG PO ×3 (06:29→23:31)
[2021-11-17] MEDS: LACTATED RINGERS 1,000 ML 30 ML IV CONT ×2 (06:35→10:35)
[2021-11-17] MEDS: TRANEXAMIC ACID 1,000MG/ISO100 1,000 MG/100 ML BAG 200 MG IVPB (07:02)
--- NOTE | 2021-11-17 07:13 | WPDANESEPPF ---
Anes - Initial Pre Proc Eval Procedure: Operation Date: 11/17/21 07:30 Proposed Procedures p Right Total Knee Arthroplasty - Jose Dixon MD Date/Time: 11/17/21 07:13 Surgeon: Jose Dixon MD Pre Op Diagnosis: right knee OA Patient Data Age: 76 Gender: M Height: 1.68 m Weight: 96.3 kg Last Vital Signs Temp 36.6 C 11/11/21 12:16 Pulse 60 11/11/21 12:16 Resp 20 11/11/21 12:16 BP 114/66 11/11/21 12:16 Pulse Ox 97 11/11/21 12:16 Allergies Allergy/AdvReac Type Severity Reaction Status Date / Time No Known Allergies Allergy Verified 11/17/21 06:19 Home Medications Medication Instructions Recorded Confirmed Type Entresto 0.5 tablet PO QAM 02/26/21 11/17/21 History Entresto 1 tablet PO HS 02/26/21 11/17/21 History ascorbic acid (vitamin C) 500 mg PO DAILY 02/26/21 11/17/21 History aspirin 81 mg PO DAILY 02/26/21 11/17/21 History atorvastatin 20 mg PO QAM 02/26/21 11/17/21 History carvedilol 6.25 mg PO BID 02/26/21 11/17/21 History cholecalciferol (vitamin D3) 50 mcg PO DAILY 02/26/21 11/17/21 History furosemide 40 mg PO QAM 02/26/21 11/17/21 History omega 0-dqq-tua-fish oil [Fish Oil] 1 cap PO DAILY 02/26/21 11/17/21 History tamsulosin 0.4 mg PO QPM 02/26/21 11/17/21 History vitamin E 400 unit PO DAILY 02/26/21 11/17/21 History zinc 50 mg PO DAILY 02/26/21 11/17/21 History acetaminophen 1,000 mg PO Q6H #90 tablet 06/05/21 11/17/21 Rx rivaroxaban [Xarelto] 10 mg PO DAILY@17 #14 tablet 06/05/21 11/17/21 Rx Patient hx anesthesia problems: none Family hx anesthesia problems: none Results Review: All pre-operative results and documents have been reviewed as part of the pre-operative evaluation. [facility] Past Medical History Medical History Ascending aortic aneurysm Atrial fibrillation BPH (benign prostatic hyperplasia) Hyperlipidemia Hypertension EMETERIO (obstructive sleep apnea) Systolic CHF Surgical History Surgical History Artificial cardiac pacemaker (~2018) History of appendectomy History of cardiac radiofrequency ablation (~2018) History of tonsillectomy and adenoidectomy ICD (implantable cardioverter-defibrillator) in place (~2018) Status post total knee replacement, left Family History Family History Daughter Psoriatic arthritis Father , at age 89 Coronary artery disease Mother , at age 88 Abdominal mass Social History Social History Social History: He has been in a long-term relationship with his girlfriend of 7 years. His girlfriend lives nearby. He has a distant history of tobacco use. He smoked between 1-3 packs of cigarettes per day for 9 years. He drinks between 2-3 alcoholic beverages every other day. 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 He has 3 children. Primary care physician: Dr. Rafael Paul code status: Full code Surrogate decision maker: His oldest daughter and his son. Smoking packs per day: 1 Smoking cigarettes per day: 20.0 Years smoked: 7 Smoking pack-years: 7.00 Smoking status: Former smoker Tobacco type: cigarettes Second hand tobacco smoke exposure: No Smoking end date: 05/15/70 Additional smoking assessment comments: STATES QUITTING 1975 - DENIES ALL FORMS OF TOBACCO USE Alcohol intake: current Drinks per week: 14 Substance use: never Substance use type: does not use Living arrangements: alone Spiritual care concerns: No Anes - Eval Final PreProcedure Day of Procedure 11/17/21 07:13 Patient weight: obese Heart: regular rate and rhythm Lungs: clear to auscultation Airway: Mallampati scale class II Neurological: alert and oriented Last oral intake: >/= 8 hours ASA classification: IV Emergent: no Anesthetic plan: proceed A
--- NOTE | 2021-11-17 07:15 | WPDHPUPDATE1 ---
History and Physical Update Update Date/Time: 11/17/21 07:15 History and Physical has been reviewed, including an updated exam of the patient. There are NO changes in the patient's condition. Risks, benefits, and alternatives have been discussed and questions answered. Patient agrees to proceed with procedure.
[2021-11-17] MEDS: ceFAZolin 2 GM/D5W 50 ML 2 GM/50 ML BAG IVPB (07:33)
[2021-11-17] MEDS: ceFAZolin SODIUM 1 GM VIAL 3 GM IRRIGATION (08:07)
[2021-11-17] MEDS: ceFAZolin SODIUM 1 GM VIAL IV PUSH (09:41)
[2021-11-17] MEDS: TRANEXAMIC ACID 1,000 MG/10 ML AMPUL 1000 MG IV PUSH (09:44)
--- NOTE | 2021-11-17 10:27 | W.PM.PROC2 ---
Procedure Note - Detailed Date of Procedure 11/17/21 Pre-op Diagnosis right knee OA Post-op Diagnosis same Procedure Performed Right total knee replacement Surgeon Jose Dixon MD [employer] Awa Anesthesia general Description of Procedure Patient was brought to the operating room general anesthesia was administered. He received 2 g of Ancef weight based vancomycin 1 g of tranexamic acid preoperatively and the right knee prepped draped usual fashion. Limb was exsanguinated tourniquet elevated to 300 mmHg. A 7 in longitudinal midline incision was using a vastus medialis splitting approach utilized splitting the vastus medialis at the superior pole of the patella. There were degenerative changes in the central and lateral trochlear ridge but the cartilage on the patella was in good condition. Minimal osteophytes removed. A minimal lateral facetectomy performed. A guide charbel was inserted up the femoral canal for aspiration canal contents using the 5 degree valgus cutting bushing 10 mm of bone removed from the distal femur which removed about 9 from the lateral side. Next the tibial plateau was cut. Removed about 1 the 2 mm off the low point medial tibial plateau. This removed about 7 mm from lateral side. Meniscal remnants were excised and the PCL was recessed. The flexion gap was 8 mm medially and a tight 10 mm laterally. Femoral sizing guide was applied and we set this to 3? of external rotation which matched Whitesides line and posterior referencing pinholes were placed and the 65 cutting block applied. This was the size that he had on the other side. AP and chamfer cuts were made. The 65 was a little bit large particularly anteriorly. It was line to line medial to lateral. I could not insert the 10 mm CR at 90? of flexion and we could barely inserted at 30?. We therefore removed an additional 2.5 mm from the tibial plateau. Cut was made again perpendicular to the axis of the tibia alignment confirmed. Tibia was sized to a size 67. The 31 could not be rotated properly without significant overhang. The 67 was placed line to line posterolaterally and anteromedially referencing off the medial 1/3 of the tibial tubercle and the 2nd metatarsal ray. This was punched. We applied the 62.5 cutting block and revise the anterior cut and the anterior chamfer cut and the 62.5 was placed and this fit nicely without extra bulk anteriorly. This allowed full extension with the 12 mm and excellent AP stability throughout range of motion. The 11 was loose in both flexion and extension. Lug holes in the femur were drilled. Patellar tracking was excellent. Step drill was used to make multiple perforations of the tibial plateau and the distal femur and the bony surfaces were thoroughly irrigated dried. Two batches of methylmethacrylate were mixed 1 containing gentamicin powder and cement was immediately applied to the tibial component 67 and the 62.5 CR femoral component cement applied the tibia pressurized and the 67 tibial component fully seated cement applied the femur and the femoral component fully seated and we placed a 12 mm 5 and 1 trial for cement pressurization the brought in extension tourniquet released at 92 minutes. After cement hardening excess cement was sought for removed. We trialed and the 11 was a little bit too loose in both flexion and extension and the 12 gave perfect stability in flexion extension with full extension negative bounce 2 mm of medial and lateral opening in full extension and gravity flexion to 140 with central patellar tracking all the way back. The 12 was placed without difficulty locked with a locking pin range of motion stability patellar tracking reconfirmed hemostasis reconfirmed local anesthetic cocktail injected the soft tissues. 3rd g Ancef 2nd g of tranexamic acid given at time of wound closure. Arthrotomy was closed with 2. Vicryl Plus unidirectional barbed a 1. Stratafix suture and the split with 1. Vicryl the
--- NOTE | 2021-11-17 14:00 | PC.NURSE ---
This patient, Naun Bynum, was admitted to [facility] Surgery-3. Patient/family oriented to hospital policies and general routines including ID bracelet, bed and alarms, visiting hours, pain management, procedures, bathroom and other care routines, personal items, smoking policy, room service/diet, and visiting hours. Information on how to activate the Rapid Response Team has been discussed. Patient/Family are encouraged to report perceived risks to care and to ask questions if they do not understand what they are told or what they should do.
[2021-11-17] MEDS: oxyCODONE HCL (*CRX) 5 MG TAB IR PO ×2 (15:12→20:13)
[2021-11-17] MEDS: TAMSULOSIN HCL 0.4 MG CAPSULE PO (17:13)
[2021-11-17] MEDS: SENNA/DOCUSATE SODIUM TABLET 2 TAB PO (17:13)
[2021-11-17] MEDS: SACUBITRIL/VALSARTAN 24-26 MG TABLET 1 TAB PO (20:11)
[2021-11-17] MEDS: carvediloL 6.25 MG TABLET PO (20:12)
[2021-11-17] MEDS: FAMOTIDINE 20 MG TABLET PO (20:12)
[2021-11-18] MEDS: oxyCODONE HCL (*CRX) 5 MG TAB IR PO ×3 (01:16→08:42)
[2021-11-18 03:12] VITALS: BP 148/85; PULSE 67; RESP 24; TEMP 36.4; O2SAT 99
[2021-11-18] MEDS: ACETAMINOPHEN 500 MG TABLET 1000 MG PO (05:43)
[2021-11-18 05:44] LABS: Hematocrit 34.9 % (42.0-52.0); Hemoglobin 11.4 g/dL (14.0-18.0); Immature Granulocyte Absolute 0.04 K/mm3 (0.00-0.031); Immature Granulocyte Percent A 0.5 % (0-0.5); Lymphocytes Absolute Auto 0.53 K/mm3 (0.9-3.2); Lymphocytes Percent Auto 6.1 % (18.3-44.2); Mean Corpuscular HGB Conc 32.7 g/dl (32-36); Mean Corpuscular Hemoglobin 33.8 pg (26-34); Mean Corpuscular Volume 103.6 fl (80-100); Mean Platelet Volume 10.1 fl (7.4-10.4); Monocytes Absolute Auto 0.8 K/mm3 (0.1-0.6); Monocytes Percent Auto 9.4 % (2.6-8.5); Neutrophils Absolute Auto 7.3 K/mm3 (1.3-6.7); Platelet Count Result 120 k/mm3 (150-375); Red Blood Count 3.37 M/mm3 (4.6-6.20); Red Cell Distribution Width 14.5 % (11.5-14.5); White Blood Count 8.7 K/mm3 (4.5-10.0)
[2021-11-18 05:54] LABS: Anion Gap 7 mmol/L (8-16); Blood Urea Nitrogen 24 mg/dL (9-20); Calcium 8.9 mg/dL (8.4-10.2); Carbon Dioxide 23 mmol/L (22-30); Chloride 105 mmol/L (98-107); Estimated CRCL calculation 58 ml/min; Estimated Glomerular Filt Rate > 60; Glucose 154 mg/dL (65-110); Potassium 4.2 mmol/L (3.4-5.0); Sodium 135 mmol/L (137-145)
--- NOTE | 2021-11-18 06:01 | PM.PNORT ---
Subjective Subjective Date/Time Seen: 11/18/21 06:01 Postop day 1 patient is alert pleasant. Pain is well controlled. Neurovascularly is intact. His labs are noted. Has been signs been stable he is walking with therapy her comfortable. Dressing is intact and dry. This point patient is doing very well. We will plan having him work with therapy this morning he continues do well on discharging home later this morning. Patient has recently had his other knee replaced and is well aware of the recovery. Objective Data Vital Signs Vital Signs: Vital Signs - 24 hr 11/17/21 06:09 11/17/21 10:35 11/17/21 10:50 Temperature 36.3 C L 36.9 C Pulse Rate 59 L 60 60 Respiratory Rate 20 14 14 Blood Pressure 184/97 H 126/80 151/88 H Pulse Oximetry 99 98 99 11/17/21 11:05 11/17/21 11:20 11/17/21 11:35 Temperature Pulse Rate 60 60 60 Respiratory Rate 12 14 14 Blood Pressure 147/93 H 149/94 H 146/99 H Pulse Oximetry 100 100 86 L 11/17/21 11:50 11/17/21 12:05 11/17/21 12:20 Temperature Pulse Rate 60 60 60 Respiratory Rate 14 12 12 Blood Pressure 150/98 H 156/98 H 160/89 H Pulse Oximetry 97 97 99 11/17/21 12:35 11/17/21 12:50 11/17/21 13:05 Temperature 36.3 C L Pulse Rate 60 60 60 Respiratory Rate 12 12 12 Blood Pressure 157/91 H 150/95 H 163/96 H Pulse Oximetry 99 99 99 11/17/21 13:25 11/17/21 13:40 11/17/21 13:55 Temperature 36.3 C L Pulse Rate 60 60 60 Respiratory Rate 16 14 20 Blood Pressure 176/103 H 129/99 H 136/106 H Pulse Oximetry 98 11/17/21 14:05 11/17/21 14:20 11/17/21 14:50 Temperature Pulse Rate 80 83 61 Respiratory Rate 24 H 18 22 H Blood Pressure 160/100 H 160/101 H 151/76 H Pulse Oximetry 11/17/21 15:50 11/17/21 16:50 11/17/21 18:35 Temperature 36.4 C L Pulse Rate 60 59 L 60 Respiratory Rate 16 17 20 Blood Pressure 123/70 122/76 151/99 H Pulse Oximetry 98 99 99 11/17/21 20:00 11/17/21 20:12 11/17/21 22:00 Temperature 36.6 C 36.3 C L Pulse Rate 62 102 H 62 Respiratory Rate 16 18 Blood Pressure 145/90 H 147/84 H Pulse Oximetry 100 100 11/17/21 23:12 11/18/21 03:12 Temperature 36.5 C 36.4 C L Pulse Rate 62 67 Respiratory Rate 18 24 H Blood Pressure 130/83 148/85 H Pulse Oximetry 100 99 Intake/Output Intake/Output: Intake & Output 11/15/21 11/16/21 11/17/21 11/18/21 23:59 23:59 23:59 23:59 Intake Total 2019 Balance 2019 Meds/Results Medications: Active Medications Generic Name Dose Route Start Last Admin Trade Name Freq PRN Reason Stop Dose Admin Acetaminophen 1,000 mg 11/18/21 00:00 11/18/21 05:43 Acetaminophen 500 Mg Tablet PO 1,000 mg Q6HR STEPHANIE Administration Aspirin 81 mg 11/18/21 09:00 Aspirin 81 Mg Enteric Tablet PO DAILY [facility] Atorvastatin Calcium 20 mg 11/18/21 09:00 Atorvastatin 20 Mg Tablet PO QAM STEPHANIE Bisacodyl 10 mg 11/17/21 13:27 Bisacodyl 10 Mg Suppository RECTAL DAILY PRN Constipation Carvedilol 6.25 mg 11/17/21 21:00 11/17/21 20:12 Carvedilol 6.25 Mg Tablet PO 6.25 mg Q12HR [facility] Administration Diphenhydramine HCl 25 mg 11/17/21 13:27 Diphenhydramine Hcl Inj 50 Mg/Ml Vial IV PUSH Q6H PRN Itching Doxycycline Hyclate 100 mg 11/18/21 21:00 Doxycycline Hyclate 100 Mg Tablet PO Q12HR STEPHANIE Famotidine 20 mg 11/17/21 21:00 11/17/21 20:12 Famotidine 20 Mg Tablet PO 20 mg Q12HR STEPHANIE Administration Furosemide 40 mg 11/18/21 09:00 Furosemide 40 Mg Tablet PO QAM STEPHANIE Vancomycin HCl 1,000 mg in 250 mls @ 250 mls/hr 11/17/21 18:00 11/18/21 05:43 Vancomycin 1,000 Mg/D5w 250 Ml IVPB 11/18/21 06:59 250 mls/hr Q12H STEPHANIE Administration Cefazolin Sodium 1 gm in 50 mls @ 100 mls/hr 11/17/21 15:00 11/17/21 23:33 Ancef 1 Gm/D5w 50 Ml Pm IVPB 11/18/21 07:29 Infused Q8H STEPHANIE Infusion Magnesium Hydroxide 30 ml 11/17/21 13:27 Magnesium Hydroxide Susp 30 Ml Udc PO BID PRN Constipation
--- NOTE | 2021-11-18 06:06 | PM.DS ---
DS: Admitting Diagnosis Discharge Date 11/18/2021 Admitting Diagnosis Right knee DJD DS: Summary Hospital Course Hospital Course: Stable Time Spent with Patient Time attestation: Total time spent providing and/or coordinating discharge services: 76-year-old male who underwent right total knee arthroplasty on 11/17/2021. Underwent the procedure complications. Postoperatively he has been afebrile vital signs is stable neurovascular is intact. He was up walking with physical therapy the day of surgery. Pain is well controlled with scheduled Tylenol as well as oxycodone 5 mg. We are not using Celebrex on him due to the fact that he is maintaining a baby aspirin and he is also on Xarelto for DVT prophylaxis. Postop day 1 he was alert pleasant. His dressing is dry. Morning labs were noted. We will plan to have patient work with physical therapy the morning of postop day 1 and continues to do well we will plan on sending home later that day on 11/18/2021. He will be on low-dose Xarelto 10 mg, for 1 week and then he will resume his 20 mg dosing. He is also going home on a 10 day course of doxycycline 100 mg b.i.d., he has a history of early diabetes and also his nasal swab specimen was lost preoperatively. He was also go home on Senokot and MiraLax for constipation. Patient has outpatient therapy starting this Wednesday. He was advised any questions or concerns she is to call the office otherwise we will see him at his appointment date. DS: Data Data Completed and Pending Labs on day of discharge: Labs from last 24 hours 11/18/21 11/18/21 05:33 05:33 WBC 8.7 RBC 3.37 L Hgb 11.4 L Hct 34.9 L MCV 103.6 H MCH 33.8 MCHC 32.7 RDW 14.5 Plt Count 120 L MPV 10.1 Immature Gran % (Auto) 0.5 Neut % (Auto) 84.0 H Lymph % (Auto) 6.1 L [place] % (Auto) 9.4 H Eos % (Auto) 0.0 Baso % (Auto) 0.0 L Lymph # (Auto) 0.53 L [place] # (Auto) 0.8 H Eos # (Auto) 0.0 Baso # (Auto) 0.0 Abs Immat Gran (auto) 0.04 H Absolute Neuts (auto) 7.3 H Absolute Nucleated RBC 0.0 Nucleated RBC % 0.0 Sodium 135 L Potassium 4.2 Chloride 105 Carbon Dioxide 23 Anion Gap 7 L BUN 24 H D Creatinine 1.00 Estim Creat Clear Calc 58 Estimated GFR > 60 Glucose 154 H Calcium 8.9 Discharge Plan Discharge Patient Disposition: Home, Self-Care Discharge Instructions: JOSE DIXON M.D [facility], [place] [id number] [place] [address] POST-OPERATIVE DISCHARGE INSTRUCTIONS TOTAL KNEE ARTHROPLASTY 1. When resting, lie on back with leg elevated above hear to minimize swelling. Significant swelling could indicate a blood clot and if this occurs call the office (or go to the ER) to have a venous ultrasound. 2. Do exercise 5 times a day. 3. Do not sit with leg down except for meals. 4. Wound Care: Nursing will give additional dressings at discharge. Patient to change dressing at home 1 week from surgery, then maintain until seen in office. 5. May shower with dressing in place. Stand Alone Forms: General Discharge Instructions Follow-up/Referrals: Jose Dixon MD [Physician] - Keep Reg. Scheduled Appt. Discharge Medications: New polyethylene glycol 3350 [Miralax] 17 gram Powder In Packet 17 g PO QAM Qty: 30 RF: 0 sennosides-docusate sodium [Senokot-S] 8.6-50 mg Tablet 2 tab PO BID Qty: 60 RF: 0 acetaminophen 500 mg Tablet 1,000 mg PO Q6HR Qty: 90 RF: 0 doxycycline hyclate 100 mg Tablet 100 mg PO Q12HR Qty: 40 RF: 0 oxycodone 5 mg Tablet 5 mg PO Q4HR Qty: 40 RF: 0 Xarelto 10 mg Tablet 10 mg PO DAILY Qty: 7 RF: 0 Continued furosemide 40 mg tablet 40 mg PO QAM RF: 0 carvedilol 6.25 mg tablet 6.25 mg PO BID RF: 0 atorvastatin 20 mg tablet 20 mg PO QAM RF: 0 aspirin 81 mg Tablet,Delayed Release (Dr/Ec) 81 mg PO DAILY RF: 0 tamsulosin 0.4 mg capsule
[2021-11-18] MEDS: ASPIRIN 81 MG ENTERIC TABLET PO (08:41)
[2021-11-18] MEDS: SENNA/DOCUSATE SODIUM TABLET 2 TAB PO (08:41)
[2021-11-18] MEDS: RIVAROXABAN 10 MG TABLET PO (08:42)
[2021-11-18] MEDS: FAMOTIDINE 20 MG TABLET PO (08:42)
[2021-11-18] MEDS: polyethylene glycoL 3350 17 GM POWD.PACK PO (08:44)
[2021-11-18 09:00] VITALS: BP 132/75; PULSE 60; RESP 20
[2021-11-18 09:43] VITALS: PULSE 60
[2021-11-18] MEDS: ATORVASTATIN 20 MG TABLET PO (09:43)
[2021-11-18] MEDS: carvediloL 6.25 MG TABLET PO (09:43)
[2021-11-18] MEDS: FUROSEMIDE 40 MG TABLET PO (09:44)
[2021-11-18] MEDS: SACUBITRIL/VALSARTAN 12-13 MG TABLET 1 TAB PO (09:45)
== END 2021-11-18 10:40 | disposition home or self-care (01) ==
LOC: ANHSURGERY 05:53 → ANHSUROVER 13:53
PROVIDERS: Physician Assistant Surgical; PCP Internal Medicine; Visit Provider Orthopaedic Surgery
PROC: (CPT 27447; principal; 2021-11-17 07:30)
DX: M17.11 Unilateral primary osteoarthritis, right knee (principal); I48.91 Unspecified atrial fibrillation; E78.5 Hyperlipidemia, unspecified; I71.4 Abdominal aortic aneurysm, without rupture; I11.0 Hypertensive heart disease with heart failure; I50.20 Unspecified systolic (congestive) heart failure; G47.33 Obstructive sleep apnea (adult) (pediatric); N40.0 Benign prostatic hyperplasia without lower urinary tract symptoms; Z79.01 Long term (current) use of anticoagulants; Z79.82 Long term (current) use of aspirin; Z95.810 Presence of automatic (implantable) cardiac defibrillator; Z87.891 Personal history of nicotine dependence; E66.9 Obesity, unspecified; Z68.33 Body mass index [BMI] 33.0-33.9, adult
CPT/HCPCS: 27447; 36415; 73560; 80048; 80307; 82040; 83036; 85025; 86850; 86900; 86901; 87070; 97110; 97116; 97161; 97165; A9270; C1713; C1776; J0171; J0690; J1100; J1170; J2270; J2370; J2405; J2704; J2795; J3370; J7120